=== PATIENT | male | born 1955 | race Two or more races ===

== ENCOUNTER 2017-10-23 08:19 | Day surgery (SDC) | payer BC ==
[2017-10-23] VITALS (9 sets, daily range): BP systolic 135–156; BP diastolic 75–85
[~2017-10-23] VITALS: Ht 167.6 cm; Wt 97.1 kg
--- NOTE | 2017-10-23 06:51 | Anethesia Preoperative Eval ---
Anesthesia Pre-op PMH/ROS General Date of Evaluation: Oct 23, 2017 Time of Evaluation: 06:50 Anesthesiologist: jolie ASA Score: ASA 3 Mallampati Score Class I : Soft palate, uvula, fauces, pillars visible Class II: Soft palate, uvula, fauces visible Class III: Soft palate, base of uvula visible Class IV: Only hard plate visible Mallampati Classification: Class II Surgeon: adarsh Diagnosis: colon screening Surgical Procedure: colonoscopy Anesthesia History: none Social History: smoking - former smoker Family History: no anesthesia problems Allergies: Coded Allergies: No Known Allergies (Unverified , 10/22/17) Medications: see eMAR Past Medical History Cardiovascular: Reports: HTN Gastrointestinal/Genitourinary: Reports: other - bph Neurologic/Psychiatric: Reports: other - traumatic brain injury, subdural hematoma Anesthesia Pre-op Phys. Exam Physician Exam Last Vital Signs Date Time Temp Pulse Resp B/P (MAP) Pulse Ox O2 Delivery O2 Flow Rate FiO2 10/23/17 10:18 97.6 59 18 156/78 98 Room Air Constitutional: NAD Neurologic: CN 2-12 intact Cardiovascular: RRR Respiratory: CTA Gastrointestinal: S/NT/ND Airway Exam Mallampati Score: Class II MO: full Neck: supple TMD: 2fb ROM: full Teeth: intact Anesthesia Pre-op A/P Risk Assessment & Plan Assessment: asa3 Plan: mac Status Change Before Surgery: No Pre-Antibiotics Drug: ESTEFANY Cat Oct 23, 2017 06:51
[~2017-10-23 08:19] MED LIST: Atropine Inj 1mg/10ml Syr IV PRN; DiphenhydrAMINE 50mg/ml Inj IVP PRN; LR 1000ml 1,000 ML IVLG SCH; Midazolam 2mg/2ml Inj IVP PRN; fentaNYL 100 mcg/2 mL IV PRN
[2017-10-23] MEDS ORDERED: Lidocaine 1% MPF 10mg/ml 5ml ONE (10:00)
[2017-10-23] MEDS ORDERED: Propofol 200mg/20ml IV ONE (10:00)
[2017-10-23] MEDS ORDERED: LR 1000ml ONE (10:00)
--- NOTE | 2017-10-23 10:05 | Short Stay Surgery H&P ---
History of Present Illness History of Present Illness Chief Complaint Abdominal pains and screening colon. ALEXANDRU Rodriguez is a 62 year old male who was admitted on for Colon Screening/ abdominal pains Patient History Allergies: Coded Allergies: No Known Allergies (Unverified , 10/22/17) PAST MEDICAL HISTORY: (1) Hypertension (2) Kidney stone Past Surgeries: Social History: Review of Systems Cardiovascular: Reports: no symptoms Respiratory: Reports: no symptoms Skeletal: Reports: no symptoms Gastrointestinal: Reports: no symptoms Genitourinary: Reports: no symptoms Neurologic: Reports: no symptoms Endocrine: Reports: no symptoms Physical Exam Skin: normal HENT: normal Heart: normal Lungs: normal Abdomen: normal Extremities: normal Genitourinary: normal Plan Plan of Care Upper and lower GI endoscopies. Preop Interventions Nnone. Summary of Findings See the reports. Final Diagnosis: Attestation Are the patient's medical conditions optimized for surgery? Attestation Response: yes MARCELA CASTILLO Oct 23, 2017 10:05
--- NOTE | 2017-10-23 10:06 | Pre-Procedure Note/Attestation ---
Pre-Procedure Note/Attestation Complete Prior to Procedure Planned Procedure: left Procedure Narrative: examination of the upper and lower GI tract. Indications for Procedure Pre-Operative Diagnosis: R/O gastritis/peptic ulcer and colon polyps. Attestation I attest that I discussed the nature of the procedure; its benefits; risks and complications; and alternatives (and the risks and benefits of such alternatives ), prior to the procedure, with the patient (or the patient's legal sales representative adding machines). I attest that, if there was a reasonable possibility of needing a blood transfusion, the patient (or the patient's legal sales representative adding machines) was given the [place] [employer] standardized written summary, pursuant to the Ernie [place] Blood Safety Act ([place] Health and Safety Code # 1645, as amended). I attest that I re-evaluated the patient just prior to the surgery and that there has been no change in the patient's H&P, except as documented below: JONATHAN,SAID Oct 23, 2017 10:06
[2017-10-23] MEDS ORDERED: EDARBI80 MG ORAL (10:21)
[2017-10-23] MEDS ORDERED: CATAPRES0.1 MG ORAL (10:21)
--- NOTE | 2017-10-23 11:19 | Endoscopy Procedure Note ---
Endoscopy Procedure Note Indication for Procedure: Screening colonoscopy and abdominal pains Procedures Performed: EGD - Small Hiatal hernia and mild gastrodoudenitis, biopsied from duodenal bulb and antral area., colonoscopy - Poor colon prep. multiple diminutive polyps found in mid transverse colon removed by cold snare. 4-5 mm area of soft tissue erosion like lesion biopsied and and tatooed and coagulated by hot snare. Minimal internal hemorrhoids. Specimen: yes Pt Tolerated Procedure Well: Yes Estimated Blood Loss: minimal Anesthesiologist: Dr. Mckeon Anesthesia: moderate sedation Medication Given: see anesthesia record Implant(s) used?: No 50 yrs or older w/o bx or poly: Yes 10yrs. F/U not recommended: Yes If not recommended, why?: 10 yrs. F/U needed: Yes <3yrs. since last colonoscopy: No Med reason:<3 yrs.: System Reason:<3 yrs.: Last colonoscopy >= to 3yrs: Yes MARCELA CASTILLO Oct 23, 2017 11:19
--- NOTE | 2017-10-23 11:20 | Discharge Instructions ---
Discharge Instructions Discharge Instructions Follow up with: see the doctor after a week in the office For Congestive Heart Failure Reminder Report to your physician any weight gain of 5 pounds or more in one week. MARCELA CASTILLO Oct 23, 2017 11:20
--- NOTE | 2017-10-23 11:35 | Immediate Post-Op Evaluation ---
Immediate Post-Op Evalulation Immediate Post-Op Evalulation Procedure: egd/colonoscopy Date of Evaluation: Oct 23, 2017 Time of Evaluation: 11:35 IV Fluids: 400ml lr Blood Products: none Estimated Blood Loss: negligible Blood Pressure Systolic: 144 Blood Pressure Diastolic: 79 Pulse Rate: 53 Respiratory Rate: 18 O2 Sat by Pulse Oximetry: 100 Temperature (Fahrenheit): 98.7 Pain Score (1-10): 0 Nausea: No Vomiting: No Complications none Patient Status: awake, reacts, patent Hydration Status: adequate Drug: ESTEFANY Cat Oct 23, 2017 11:35
--- NOTE | 2017-10-23 11:42 | 48 Hour Post Anesthesia Eval ---
Post Anesthesia Evaluation Procedure: egd/colonoscopy Date of Evaluation: Oct 23, 2017 Time of Evaluation: 11:37 Blood Pressure Systolic: 143 0: 79 Pulse Rate: 52 Respiratory Rate: 18 Temperature (Fahrenheit): 98.7 O2 Sat by Pulse Oximetry: 100 Airway: patent Nausea: No Vomiting: No Pain Intensity: 0 Hydration Status: adequate Cardiopulmonary Status: stable Mental Status/LOC: patient returned to baseline Post-Anesthesia Complications: none Follow-up care needed: N/A ESTEFANY CHRISTIAN Oct 23, 2017 11:42
--- NOTE | 2017-10-23 20:45 | Procedure Note ---
DATE OF PROCEDURE: 10/23/2017 SURGEON: Emmett Schaeffer M.D. PROCEDURE: Esophagogastroduodenoscopy with biopsy. PREOPERATIVE DIAGNOSIS: Abdominal pain. POSTOPERATIVE DIAGNOSES: 1. Small hiatal hernia. 2. Mild gastroduodenitis. Biopsy was taken from duodenal bulb and antral area. MEDICATION USED: Per Dr. Mckeon, anesthesiologist. INSTRUMENT: GIF Olympus upper gastrointestinal video endoscope. DESCRIPTION OF PROCEDURE: The patient after arriving endoscopy unit, was told about risks and benefits of the procedure, which he accepted and signed informed consent. At this time, he was put in the left lateral decubitus position. After adequate IV sedation, the scope was gently passed through the cricopharyngeal area, was lodged into the upper esophagus, and gradually advanced towards the gastroesophageal junction. The entire length of the esophagus looked normal and there was no any evidence of any inflammatory process, ulceration, stricture, etc. GE junction also looked normal. No evidence of Johnson's, however, there was a small hiatal hernia. At this time, the scope was advanced into the stomach. Gastric cavity was distended and examination of the fundus and the body and the antrum revealed evidence of mild inflammatory process mostly in the body and the antral area. As such, one biopsy from the antrum was obtained. Subsequently, the scope was passed through the pylorus and entering into the duodenal bulb, it was seen there was inflammatory process and easy friability consistent with mild duodenitis. One biopsy from the distal part of the duodenal bulb was obtained and subsequently, the scope was passed into the second portion of duodenum, which looked normal. At this time, the scope was pulled back into the stomach. A retroflexion maneuver was applied and the area of the gastroesophageal junction was examined in a closer fashion, which revealed normal findings. Finally, the scope was pulled out and the procedure was terminated. The patient tolerated the procedure well. Emmett Schaeffer M.D. DR: ABRAHAN JOB#: [id number] CC:
--- NOTE | 2017-10-23 22:15 | Procedure Note ---
DATE OF PROCEDURE: 10/23/2017 SURGEON: Emmett Schaeffer M.D. PROCEDURE: Total colonoscopy with biopsy and polypectomy. PREOPERATIVE DIAGNOSIS: Screening colonoscopy. POSTOPERATIVE DIAGNOSES: 1. Minimal internal hemorrhoids. 2. Multiple diminutive polypoid lesion found in the mid transverse colon removed with a cold snare. 3. An erosion-like linear lesion found at the distant transverse colon, was multiply biopsied and coagulated and tattooed. Approximately, the length was 70 cm from the anal opening. MEDICATION USED: Per Dr. Mckeon, anesthesiologist. INSTRUMENT: GIF Olympus video colonoscope. DESCRIPTION OF PROCEDURE: The patient after arriving in the endoscopy unit, was told about risks and benefits of the procedure, which he accepted and signed informed consent. He was then put on the left lateral decubitus position. After adequate IV sedation, the scope was gently passed through the anal area, which revealed evidence of minimal internal hemorrhoids of no great significance. At this time, the scope was passed to a rather redundant left colon, which was also filled with liquid stool signifying the lack of good prep. However, multiple irrigation scope was gradually advanced toward the splenic flexure, and upon arriving into the distal transverse colon, approximately 70 cm from anal opening, there was a linear lesion, erosion-like with scab on it, which was multiply biopsied and finally coagulated with an instrumentation of tattooing in this area for future if needed. This lesion, however, looked benign. However, the finding depends on the pathological finding. At this point, the scope was gradually advanced into transverse colon, which revealed evidence of multiple small 3 to 4 mm diminutive polypoid lesion, which were soft and sessile-like. They were grabbed with cold snare and removed totally and sent to pathology lab. There was no any active bleeding at the site of polypectomies. This area, as I mentioned, was in the mid transverse colon. Finally, the scope was advanced towards the hepatic flexure, guided into the right colon all the way to the base of the cecum, which revealed a normal finding. At this time, the scope was gradually moved out within 8 minutes and there was no other pathological finding except what is stated above. The patient tolerated the procedure well and left the endoscopy room in a good condition. Said Hannah Schaeffer DR: MIREYA JOB#: [id number] CC:
== END 2017-10-23 13:00 | disposition home or self-care (01) ==
LOC: GAS 08:19
DX: Z12.11 Encounter for screening for malignant neoplasm of colon (principal); K64.8 Other hemorrhoids; K63.5 Polyp of colon; K44.9 Diaphragmatic hernia without obstruction or gangrene; K29.90 Gastroduodenitis, unspecified, without bleeding; I10 Essential (primary) hypertension; Z87.820 Personal history of traumatic brain injury; Z87.891 Personal history of nicotine dependence
CPT/HCPCS: 43239; 45380; 45384; J2704; J7120; 94003; 94150